=== PATIENT | female | born 1955 | race African-American/Black ===

== ENCOUNTER 2018-05-10 11:56 | Inpatient (IN) | payer OTHER ==
[2018-05-10 17:19] VITALS: BMI 27.4
--- NOTE | 2018-05-10 20:08 | HP ---
CIWA Score - CIWA Score Nausea/Vomitin Muscle Tremors: 4-Moderate,w/Arms Extend Anxiety: 4-Mod. Anxious/Guarded Agitation: 4-Moderately Restless Paroxysmal Sweats: 3 Orientation: 0-Oriented Tacttile Disturbances: 0-None Auditory Disturbances: 0-None Visual Disturbances: 0-None Headache: 2-Mild CIWA-Ar Total Score: 20 Admission ROS BHS - HPI Chief Complaint: Alcohol withdrawal symptoms Allergies/Adverse Reactions: Allergies Allergy/AdvReac Type Severity Reaction Status Date / Time No Known Allergies Allergy Verified 05/07/12 21:03 History of Present Illness: 62 years old female with a long history of alcohol dependence is seeking admission to detox. Patient was at [facility] in 2011 and does not remember the last place she detoxed. She reports insignificant period of sobriety. Patient has medical history of left leg arthritis, seizure and depression. She reports suicide attempt this month and denies suicidal ideation at this time. Exam Limitations: No Limitations - Ebola screening Have you traveled outside of the country in the last 21 days: No (N) Have you had contact with anyone from an Ebola affected area: No Have you been sick,other than usual withdrawal symptoms: No Do you have a fever: No - Review of Systems Constitutional: Chills, Loss of Appetite, Malaise, Night Sweats, Changes in sleep EENT: reports: Sinus Pressure Respiratory: reports: No Symptoms reported Cardiac: reports: No Symptoms Reported GI: reports: Diarrhea (x 2), Nausea, Poor Appetite, Poor Fluid Intake, Vomiting (x 3), Abdominal cramping : reports: No Symptoms Reported Musculoskeletal: reports: No Symptoms Reported Integumentary: reports: Dryness, Flushing, Pallor Neuro: reports: Tremors, Weakness Endocrine: reports: No Symptoms Reported Hematology: reports: No Symptoms Reported Psychiatric: reports: Anxious, Depressed Other Systems: Reviewed and Negative Patient History - Patient Medical History Hx Anemia: No Hx Asthma: No Hx Chronic Obstructive Pulmonary Disease (COPD): No Hx Cardiac Disorders: No Hx Congestive Heart Failure: No Hx Hypertension: No Hx Hypercholesterolemia: No HX Cerebrovascular Accident: No Hx Seizures: Yes (Not on medication) Hx Diabetes: No Hx Gastrointestinal Disorders: No Hx Liver Disease: No Hx Genitourinary Disorders: No Hx Sexually Transmitted Disorders: No Hx Renal Disease (ESRD): No Hx Thyroid Disease: No Hx Human Immunodeficiency Virus (HIV): No (Never tested) Hx Hepatitis C: No Hx Depression: Yes (Not on medication) Hx Suicide Attempt: No (Reports attempt in 2018 and denies suicidal ideation at this time) Hx Bipolar Disorder: No Hx Schizophrenia: No Other Medical History: Left leg arthritis - Not on medication - Patient Surgical History Past Surgical History: No - PPD History Previous Implant?: No (Reports she never had a prior implant) Implanted On Prior R Admission?: No PPD to be Administered?: Yes - Reproductive History Patient is a Female of Child Bearing Age (11 -55 yrs old): Yes LMP comment: MENOPAUSAL Patient : No - Smoking Cessation Smoking history: Current every day smoker Have you smoked in the past 12 months: Yes Aproximately how many cigarettes per day: 10 Hx Chewing Tobacco Use: No Initiated information on smoking cessation: Yes 'Breaking Loose' booklet given: 05/10/18 - Substance & Tx. History Hx Alcohol Use: Yes Hx Substance Use: No Substance Use Type: Alcohol Hx Substance Use Treatment: Yes (Patient does not remember name of facility) - Substances Abused Alcohol Route: Oral Frequency: Daily Amount used: 6 PINTS OF VODKA Age of first use: 18 Date of Last Use: 05/10/18 Family Disease History - Family Disease History Family History: Denies Admission Physical Exam S - Vital Signs Vital Signs: Vital Signs - 24 hr 05/10/18 17:13 Temperature 97.8 F Pulse Rate 120 H Respiratory 18 Rate Blood Pressure 138/77 - Physical General Appearance: Yes: Moderate Distress, Tremorous, Irritable, Sweating, Anxious HEENTM: Yes: EOMI, Normal ENT Inspection, Normocephalic, Normal Voice, KERRY Respiratory: Yes: Lungs Clear, Normal Breath Sounds, No Respiratory Distress Neck: Yes: No masses,lesions,Nodules, Supple, Trachea in good position Breast: Yes: Breast Exam Deferred Cardiology: Yes: Tachycardia Abdominal: Yes: Normal Bowel Sounds, Soft Genitourinary: Yes: Within Normal Limits Back: Yes: Normal Inspection Musculoskeletal: Yes: Within Normal Limits Extremities: Yes: Tremors Neurological: Yes: Alert, Normal Mood/Affect Integumentary: Yes: Warm Lymphatic: Yes: Within Normal Limits - Diagnostic (1) Alcohol dependence with uncomplicated withdrawal Current Visit: Yes Status: Chronic (2) Nicotine dependence Current Visit: Yes Status: Chronic Qualifiers: Nicotine product type: unspecified (3) Seizures Current Visit: Yes Status: Chronic (4) Depression Current Visit: Yes Status: Chronic Qualifiers: Depression Type: unspecified Qualified Code(s): F32.9 - Major depressive disorder, single episode, unspecified (5) Arthritis of left leg Current Visit: Yes Status: Chronic Cleared for Admission [facility] - Detox or Rehab [facility] Level of Care: Medically Managed Detox Regimen/Protocol: Librium S Breath Alcohol Content Breath Alcohol Content: 0.054 Urine Pregancy Test - Result Urine Test Results: Negative- NO Line Present Urine Drug Screen - Results Drug Screen Negative: Yes
[2018-05-10] MEDS ORDERED: MAGNESIUM HYDROX 2400MG/30ML ORAL SUSPENSION 30 ML CUP PO PRN (20:29)
[2018-05-10] MEDS ORDERED: guaiFENesin/D-METHORPHAN HB 10 ML UNIT-DOSE CUPS PO PRN (20:29)
[2018-05-10] MEDS ORDERED: IBUPROFEN 400 MG TABLET (FP) PO PRN (20:29)
[2018-05-10] MEDS ORDERED: chlordiazePOXIDE HCL 25 MG CAPSULE PO PRN (20:29)
[2018-05-10] MEDS ORDERED: P-EPHED 60MG/TRIPROLIDI 2.5MG TABLET PO PRN (20:29)
[2018-05-10] MEDS ORDERED: MAG HYDROX/AL HYDROX/SIMETH 30 ML UNIT-DOSE CUP PO PRN (20:29)
[2018-05-10] MEDS ORDERED: MAGNESIUM CITRATE 300 ML BOTTLE PO PRN (20:29)
[2018-05-10] MEDS ORDERED: ACETAMINOPHEN 325 MG TABLET (FP) PO PRN (20:29)
[2018-05-10] MEDS ORDERED: MENTHOL/PHENOL 1 EACH UD MM PRN (20:29)
[2018-05-10] MEDS ORDERED: NICOTINE POLACRILEX 4 MG GUM BC PRN (20:29)
[2018-05-10] MEDS ORDERED: LOPERAMIDE HCL 2 MG CAPSULE PO PRN (20:29)
[2018-05-10] MEDS ORDERED: MELATONIN 5 MG TABLETS PO PRN (22:00)
[2018-05-10] MEDS: THIAMINE HCL 100 MG TABLET (FP) PO SCH (23:27)
[2018-05-10] MEDS: chlordiazePOXIDE HCL 25 MG CAPSULE PO SCH (23:28)
[2018-05-11] MEDS: chlordiazePOXIDE HCL 25 MG CAPSULE PO SCH ×4 (05:39→22:28)
--- NOTE | 2018-05-11 07:31 | CONSULT ---
[facility] Psychiatric Consult - Data Date of interview: 05/11/18 Admission source: [facility] Identifying data: This is a 62 years old female, single, living alone, with a long history of alcohol dependence is reporting withdrawal symptoms and seeking admission to detox. Patient has cognitive deficit and poor historian, Patient was at [facility] in 2011 and does not remember the last place she detoxed. Reports recent suicidal incident but can not discribe detailes, denies suicidal, homicidal ideation at this time. Substance Abuse History: - Smoking Cessation. Smoking history: Current every day smoker. Have you smoked in the past 12 months: Yes. Aproximately how many cigarettes per day: 10. Hx Chewing Tobacco Use: No. Initiated information on smoking cessation: Yes. 'Breaking Loose' booklet given: 05/10/18. - Substance & Tx. History. Hx Alcohol Use: Yes. Hx Substance Use: No. Substance Use Type : Alcohol. Hx Substance Use Treatment: Yes (Patient does not remember name of facility). - Substances Abused. Alcohol. Route: Oral. Frequency: Daily. Amount used: 6 PINTS OF VODKA. Age of first use: 18. Date of Last Use: Medical History: Osteoarthritis, Seizure history, Left Leg injuryb hyistory Psychiatric History: Patient reports history of depression, denies history of psychiatric hospitalizations, reports no medications taking prior to admission, circumstantioa, and tangential in conversation with proposal lead writer. As per computer patient reports suicidal attempt this month and denies suicidal ideation at this time. Patient is poor historyan and cognitively below average. Exam Limitations: No Limitations Physical/Sexual Abuse/Trauma History: Unclear Additional Comment: Observation. Detox Unit Care Protocol Mental Status Exam - Mental Status Exam Alert and Oriented to: Person Cognitive Function: Impaired Patient Appearance: Unkempt Mood: Sad Affect: Flat Patient Behavior: Sedated Speech Pattern: Delayed Voice Loudness: Mildly Soft/Quiet Thought Process: Circumstantial, Tangential Thought Disorder: Being Controlled Hallucinations: Denies Suicidal Ideation: Denies Homicidal Ideation: Denies Insight/Judgement: Fair Sleep: Difficulty falling asleep Appetite: Weight loss Muscle strength/Tone: Clonus Gait/Station: Deferred Additional Comments: Observation. Detox Unit Care Protocol Psychiatric Findings - Problem List ([place] 1, 2,3) (1) Alcohol-induced mood disorder Current Visit: Yes Status: Acute (2) Alcohol dependence with uncomplicated withdrawal Current Visit: Yes Status: Chronic (3) Arthritis of left leg Current Visit: Yes Status: Chronic (4) Depression Current Visit: Yes Status: Chronic Qualifiers: Depression Type: unspecified Qualified Code(s): F32.9 - Major depressive disorder, single episode, unspecified (5) Nicotine dependence Current Visit: Yes Status: Chronic Qualifiers: Nicotine product type: unspecified (6) Seizures Current Visit: Yes Status: Chronic (7) Alcohol dependence Current Visit: No Status: Active (8) Osteoarthritis of multiple joints Current Visit: No Status: Active - Initial Treatment Plan Initial Treatment Plan: Observation. Detox Unit Care Protocol
--- NOTE | 2018-05-11 09:06 | PN ---
S CIWA - CIWA Score Nausea/Vomitin Muscle Tremors: 3 Anxiety: 2 Agitation: 2 Paroxysmal Sweats: 1-Minimal Palms Moist Orientation: 0-Oriented Tacttile Disturbances: 1-Very Mild Itch/Numbness Auditory Disturbances: 1-Very Mild Visual Disturbances: 0-None Headache: 2-Mild CIWA-Ar Total Score: 15 BHS Progress Note (SOAP) Subjective: alert,irritable,anxious,interrupted sleep,tremor Objective: 05/11/18 09:03 Vital Signs Temperature 99.9 F H 05/11/18 06:33 Pulse Rate 105 H 05/11/18 06:33 Respiratory Rate 20 05/11/18 06:33 Blood Pressure 148/70 05/11/18 06:33 O2 Sat by Pulse Oximetry (%) ekg sinus tachycardia 110/min qt/qtc 356/466 no chest pain,no sob,no dizziness labs pending Assessment: 05/11/18 09:05 withdrawal symptom Plan: continue detox
[2018-05-11 10:25] LABS: HEMATOCRIT 36.4 % (32.4-45.2); HEMOGLOBIN 12.3 GM/dL (10.7-15.3); MCH 35.6 pg (25.7-33.7); MCHC 33.7 g/dl (32.0-36.0); MEAN CELL VOLUME 105.8 fl (80-96); MEAN PLT VOLUME 10.8 fl (7.5-11.1); PLATELET COUNT 103 K/MM3 (134-434); RBC 3.44 M/mm3 (3.60-5.2); RDW 17.5 % (11.6-15.6); WHITE BLOOD COUNT 6.4 K/mm3 (4.0-10.0)
[2018-05-11] MEDS: NICOTINE 14 MG/24 HOURS TOPICAL PATCH TD SCH (10:30)
[2018-05-11] MEDS: PRENATAL VITAMINS W/ FOLIC ACID TABLET (FP) PO SCH (10:30)
[2018-05-11 10:34] LABS: CHLORIDE 98 mmol/L (98-107); POTASSIUM 3.4 mmol/L (3.5-5.1); SODIUM 141 mmol/L (136-145)
[2018-05-11 10:45] LABS: ALBUMIN 2.8 g/dl (3.4-5.0); ALK PHOS 79 U/L (45-117); ANION GAP 11 MMOL/L (8-16); BILIRUBIN,TOTAL 1.4 mg/dL (0.2-1.0); BLOOD UREA NITROGEN 8 mg/dL (7-18); CALCIUM 7.4 mg/dL (8.5-10.1); CO2 32 mmol/L (21-32); CREATININE 0.4 mg/dL (0.55-1.02); GLUCOSE,RANDOM 69 mg/dL (74-106); SGOT/AST 43 U/L (15-37); SGPT/ALT 21 U/L (12-78); TOT PROT 5.4 g/dl (6.4-8.2)
--- NOTE | 2018-05-11 16:01 | EKG ---
Test Reason : Blood Pressure : / mmHG Vent. Rate : 103 BPM Atrial Rate : 103 BPM P-R Int : 148 ms QRS Dur : 074 ms QT Int : 346 ms P-R-T Axes : 063 020 -73 degrees QTc Int : 453 ms SINUS TACHYCARDIA NONSPECIFIC ST AND T WAVE ABNORMALITY ABNORMAL ECG WHEN COMPARED WITH ECG OF 10-MAY-2018 23:34, NO SIGNIFICANT CHANGE WAS FOUND Confirmed by Christen Joy ([id number]) on 05/11/2018 4:00:44 PM Referred By: Confirmed By:Christen Joy
--- NOTE | 2018-05-11 17:09 | PN ---
[facility] Progress Note Note: Vital Signs Temperature 98.6 F 05/11/18 14:58 Pulse Rate 97 H 05/11/18 14:58 Respiratory Rate 19 05/11/18 14:58 Blood Pressure 105/53 05/11/18 14:58 O2 Sat by Pulse Oximetry (%) Laboratory Last Values WBC 6.4 K/mm3 (4.0-10.0) 05/11/18 09:00 RBC 3.44 M/mm3 (3.60-5.2) L 05/11/18 09:00 Hgb 12.3 GM/dL (10.7-15.3) 05/11/18 09:00 Hct 36.4 % (32.4-45.2) 05/11/18 09:00 MCV 105.8 fl (80-96) H 05/11/18 09:00 MCH 35.6 pg (25.7-33.7) H 05/11/18 09:00 MCHC 33.7 g/dl (32.0-36.0) 05/11/18 09:00 RDW 17.5 % (11.6-15.6) H 05/11/18 09:00 Plt Count 103 K/MM3 (134-434) L D 05/11/18 09:00 MPV 10.8 fl (7.5-11.1) 05/11/18 09:00 Sodium 141 mmol/L (136-145) 05/11/18 07:40 Potassium 3.4 mmol/L (3.5-5.1) L 05/11/18 07:40 Chloride 98 mmol/L (98-107) 05/11/18 07:40 Carbon Dioxide 32 mmol/L (21-32) 05/11/18 07:40 Anion Gap 11 MMOL/L (8-16) 05/11/18 07:40 BUN 8 mg/dL (7-18) 05/11/18 07:40 Creatinine 0.4 mg/dL (0.55-1.02) L 05/11/18 07:40 Creat Clearance w eGFR > 60 (>60) 05/11/18 07:40 Random Glucose 69 mg/dL (74-106) L 05/11/18 07:40 Calcium 7.4 mg/dL (8.5-10.1) L 05/11/18 07:40 Total Bilirubin 1.4 mg/dL (0.2-1.0) H 05/11/18 07:40 AST 43 U/L (15-37) H 05/11/18 07:40 ALT 21 U/L (12-78) 05/11/18 07:40 Alkaline Phosphatase 79 U/L (45-117) 05/11/18 07:40 Total Protein 5.4 g/dl (6.4-8.2) L 05/11/18 07:40 Albumin 2.8 g/dl (3.4-5.0) L 05/11/18 07:40 RPR Titer Nonreactive (NONREACTIVE) 05/11/18 07:40 HIV 1&2 Antibody Screen Negative 05/11/18 08:20 HIV P24 Antigen Negative 05/11/18 08:20 mild hypokalemia repeat potassium in AM continue to monitor
[2018-05-11] MEDS: THIAMINE HCL 100 MG TABLET (FP) PO SCH (22:29)
[2018-05-12] MEDS: chlordiazePOXIDE HCL 25 MG CAPSULE PO SCH ×3 (06:28→18:14)
--- NOTE | 2018-05-12 10:05 | PN ---
S CIWA - CIWA Score Nausea/Vomitin Muscle Tremors: 3 Anxiety: 1-Mildly Anxious Agitation: 2 Paroxysmal Sweats: 1-Minimal Palms Moist Orientation: 0-Oriented Tacttile Disturbances: 1-Very Mild Itch/Numbness Auditory Disturbances: 1-Very Mild Visual Disturbances: 0-None Headache: 2-Mild CIWA-Ar Total Score: 14 S Progress Note (SOAP) Subjective: alert,irritable,anxious,interrupted sleep, Objective: 05/12/18 10:04 Vital Signs Temperature 98.4 F 05/12/18 09:50 Pulse Rate 112 H 05/12/18 09:50 Respiratory Rate 18 05/12/18 09:50 Blood Pressure 141/68 05/12/18 09:50 O2 Sat by Pulse Oximetry (%) 05/12/18 10:04 Laboratory Last Values WBC 6.4 K/mm3 (4.0-10.0) 05/11/18 09:00 RBC 3.44 M/mm3 (3.60-5.2) L 05/11/18 09:00 Hgb 12.3 GM/dL (10.7-15.3) 05/11/18 09:00 Hct 36.4 % (32.4-45.2) 05/11/18 09:00 MCV 105.8 fl (80-96) H 05/11/18 09:00 MCH 35.6 pg (25.7-33.7) H 05/11/18 09:00 MCHC 33.7 g/dl (32.0-36.0) 05/11/18 09:00 RDW 17.5 % (11.6-15.6) H 05/11/18 09:00 Plt Count 103 K/MM3 (134-434) L D 05/11/18 09:00 MPV 10.8 fl (7.5-11.1) 05/11/18 09:00 Sodium 141 mmol/L (136-145) 05/11/18 07:40 Potassium 3.4 mmol/L (3.5-5.1) L 05/11/18 07:40 Chloride 98 mmol/L (98-107) 05/11/18 07:40 Carbon Dioxide 32 mmol/L (21-32) 05/11/18 07:40 Anion Gap 11 MMOL/L (8-16) 05/11/18 07:40 BUN 8 mg/dL (7-18) 05/11/18 07:40 Creatinine 0.4 mg/dL (0.55-1.02) L 05/11/18 07:40 Creat Clearance w eGFR > 60 (>60) 05/11/18 07:40 Random Glucose 69 mg/dL (74-106) L 05/11/18 07:40 Calcium 7.4 mg/dL (8.5-10.1) L 05/11/18 07:40 Total Bilirubin 1.4 mg/dL (0.2-1.0) H 05/11/18 07:40 AST 43 U/L (15-37) H 05/11/18 07:40 ALT 21 U/L (12-78) 05/11/18 07:40 Alkaline Phosphatase 79 U/L (45-117) 05/11/18 07:40 Total Protein 5.4 g/dl (6.4-8.2) L 05/11/18 07:40 Albumin 2.8 g/dl (3.4-5.0) L 05/11/18 07:40 RPR Titer Nonreactive (NONREACTIVE) 05/11/18 07:40 HIV 1&2 Antibody Screen Negative 05/11/18 08:20 HIV P24 Antigen Negative 05/11/18 08:20 05/12/18 10:04 repeat k pending Assessment: 05/12/18 10:05 withdrawal symptom Plan: continue detox
[2018-05-12] MEDS: PRENATAL VITAMINS W/ FOLIC ACID TABLET (FP) PO SCH (11:06)
[2018-05-12] MEDS: NICOTINE 14 MG/24 HOURS TOPICAL PATCH TD SCH (11:06)
[2018-05-12] MEDS: POTASSIUM CHLORIDE TABS 20 MEQ TABLET.ER (FP) PO SCH (15:48)
[2018-05-12] MEDS: THIAMINE HCL 100 MG TABLET (FP) PO SCH (21:56)
[2018-05-12] MEDS: chlordiazePOXIDE 5 MG CAPSULE PO SCH (22:55)
[2018-05-13] MEDS: chlordiazePOXIDE 5 MG CAPSULE PO SCH ×3 (05:41→18:25)
--- NOTE | 2018-05-13 10:51 | PN ---
B[facility] Progress Note (SOAP) Subjective: Mild shakes, sleep interruption and muscle aches Objective: 05/13/18 10:49 Vital Signs - 8 hr 05/13/18 05/13/18 05/13/18 03:30 06:00 06:30 Temperature 97.9 F Pulse Rate 89 Respiratory 18 18 18 Rate Blood Pressure 115/68 05/13/18 09:14 Temperature 98.2 F Pulse Rate 86 Respiratory 18 Rate Blood Pressure 115/66 Laboratory Last Values WBC 6.4 K/mm3 (4.0-10.0) 05/11/18 09:00 RBC 3.44 M/mm3 (3.60-5.2) L 05/11/18 09:00 Hgb 12.3 GM/dL (10.7-15.3) 05/11/18 09:00 Hct 36.4 % (32.4-45.2) 05/11/18 09:00 MCV 105.8 fl (80-96) H 05/11/18 09:00 MCH 35.6 pg (25.7-33.7) H 05/11/18 09:00 MCHC 33.7 g/dl (32.0-36.0) 05/11/18 09:00 RDW 17.5 % (11.6-15.6) H 05/11/18 09:00 Plt Count 103 K/MM3 (134-434) L D 05/11/18 09:00 MPV 10.8 fl (7.5-11.1) 05/11/18 09:00 Sodium 141 mmol/L (136-145) 05/11/18 07:40 Potassium 3.4 mmol/L (3.5-5.1) L 05/12/18 07:00 Chloride 98 mmol/L (98-107) 05/11/18 07:40 Carbon Dioxide 32 mmol/L (21-32) 05/11/18 07:40 Anion Gap 11 MMOL/L (8-16) 05/11/18 07:40 BUN 8 mg/dL (7-18) 05/11/18 07:40 Creatinine 0.4 mg/dL (0.55-1.02) L 05/11/18 07:40 Creat Clearance w eGFR > 60 (>60) 05/11/18 07:40 Random Glucose 69 mg/dL (74-106) L 05/11/18 07:40 Calcium 7.4 mg/dL (8.5-10.1) L 05/11/18 07:40 Total Bilirubin 1.4 mg/dL (0.2-1.0) H 05/11/18 07:40 AST 43 U/L (15-37) H 05/11/18 07:40 ALT 21 U/L (12-78) 05/11/18 07:40 Alkaline Phosphatase 79 U/L (45-117) 05/11/18 07:40 Total Protein 5.4 g/dl (6.4-8.2) L 05/11/18 07:40 Albumin 2.8 g/dl (3.4-5.0) L 05/11/18 07:40 RPR Titer Nonreactive (NONREACTIVE) 05/11/18 07:40 HIV 1&2 Antibody Screen Negative 05/11/18 08:20 HIV P24 Antigen Negative 05/11/18 08:20 Labs noted-hypokalemia Assessment: 05/13/18 10:50 Withdrawal sx Hypokalemia Plan: Continue detox Started on potassium supplement on 05/12, continue same
[2018-05-13] MEDS: PRENATAL VITAMINS W/ FOLIC ACID TABLET (FP) PO SCH (11:29)
[2018-05-13] MEDS: NICOTINE 14 MG/24 HOURS TOPICAL PATCH TD SCH (11:29)
[2018-05-13] MEDS: POTASSIUM CHLORIDE TABS 20 MEQ TABLET.ER (FP) PO SCH (11:29)
[2018-05-13] MEDS: chlordiazePOXIDE HCL 10 MG CAPSULE PO SCH (23:35)
[2018-05-13] MEDS: THIAMINE HCL 100 MG TABLET (FP) PO SCH (23:35)
[2018-05-14 06:02] VITALS: TEMP 98.1
[2018-05-14] MEDS: chlordiazePOXIDE HCL 10 MG CAPSULE PO SCH ×2 (06:11→10:35)
[2018-05-14] MEDS: POTASSIUM CHLORIDE TABS 20 MEQ TABLET.ER (FP) PO SCH (09:49)
[2018-05-14] MEDS: PRENATAL VITAMINS W/ FOLIC ACID TABLET (FP) PO SCH (09:49)
[2018-05-14] MEDS: NICOTINE 14 MG/24 HOURS TOPICAL PATCH TD SCH (09:51)
[2018-05-14 11:10] VITALS: BP 91/58; PULSE 105
--- NOTE | 2018-05-14 11:54 | PN ---
[facility] Progress Note Note: Alert and oriented x 3. Respirations quiet and unlabored. Denies withdrawal symptoms. Has own wheelchair and is able to transfer in and out of chair w/o assistance. States being discharged and "will follow-up with what's necessary." Verbalizes an understanding of health risks associated w/ alcohol use and relapse prevention. Laboratory Last Values WBC 6.4 K/mm3 (4.0-10.0) 05/11/18 09:00 RBC 3.44 M/mm3 (3.60-5.2) L 05/11/18 09:00 Hgb 12.3 GM/dL (10.7-15.3) 05/11/18 09:00 Hct 36.4 % (32.4-45.2) 05/11/18 09:00 MCV 105.8 fl (80-96) H 05/11/18 09:00 MCH 35.6 pg (25.7-33.7) H 05/11/18 09:00 MCHC 33.7 g/dl (32.0-36.0) 05/11/18 09:00 RDW 17.5 % (11.6-15.6) H 05/11/18 09:00 Plt Count 103 K/MM3 (134-434) L D 05/11/18 09:00 MPV 10.8 fl (7.5-11.1) 05/11/18 09:00 Sodium 141 mmol/L (136-145) 05/11/18 07:40 Potassium 3.4 mmol/L (3.5-5.1) L 05/12/18 07:00 Chloride 98 mmol/L (98-107) 05/11/18 07:40 Carbon Dioxide 32 mmol/L (21-32) 05/11/18 07:40 Anion Gap 11 MMOL/L (8-16) 05/11/18 07:40 BUN 8 mg/dL (7-18) 05/11/18 07:40 Creatinine 0.4 mg/dL (0.55-1.02) L 05/11/18 07:40 Creat Clearance w eGFR > 60 (>60) 05/11/18 07:40 Random Glucose 69 mg/dL (74-106) L 05/11/18 07:40 Calcium 7.4 mg/dL (8.5-10.1) L 05/11/18 07:40 Total Bilirubin 1.4 mg/dL (0.2-1.0) H 05/11/18 07:40 AST 43 U/L (15-37) H 05/11/18 07:40 ALT 21 U/L (12-78) 05/11/18 07:40 Alkaline Phosphatase 79 U/L (45-117) 05/11/18 07:40 Total Protein 5.4 g/dl (6.4-8.2) L 05/11/18 07:40 Albumin 2.8 g/dl (3.4-5.0) L 05/11/18 07:40 RPR Titer Nonreactive (NONREACTIVE) 05/11/18 07:40 HIV 1&2 Antibody Screen Negative 05/11/18 08:20 HIV P24 Antigen Negative 05/11/18 08:20 Vital Signs - 24 hr 05/13/18 05/13/18 05/13/18 14:40 17:33 22:12 Temperature 98.1 F 98.1 F 97.7 F Pulse Rate 98 H 90 99 H Respiratory 18 18 18 Rate Blood Pressure 97/53 103/67 128/74 05/14/18 05/14/18 05/14/18 00:30 01:55 03:30 Temperature 98.8 F Pulse Rate 79 Respiratory 18 18 15 Rate Blood Pressure 116/69 05/14/18 05/14/18 06:00 10:00 Temperature 98.1 F 98.1 F Pulse Rate 94 H 105 H Respiratory 18 16 Rate Blood Pressure 128/88 91/58 Stable. Tolerated detox. Discharged to home, as arranged.
--- NOTE | 2018-05-14 13:09 | DS ---
[facility] Detox Discharge Summary Admission Date: 05/10/18 Discharge Date: 05/14/18 - History Present History: Alcohol Dependence Pertinent Past History: Alcohol use disorder. Hx osteoarthritis requiring wheelchair use. - Physical Exam Results Vital Signs: Vital Signs Temperature 98.1 F 05/14/18 10:00 Pulse Rate 105 H 05/14/18 10:00 Respiratory Rate 16 05/14/18 10:00 Blood Pressure 91/58 05/14/18 10:00 O2 Sat by Pulse Oximetry (%) Pertinent Admission Physical Exam Findings: Alcohol withdrawal. Laboratory Tests 05/11/18 05/11/18 05/11/18 07:40 07:40 08:20 WBC RBC Hgb Hct MCV MCH MCHC RDW Plt Count MPV Sodium 141 Potassium 3.4 L Chloride 98 Carbon Dioxide 32 Anion Gap 11 BUN 8 Creatinine 0.4 L Creat Clearance w eGFR > 60 Random Glucose 69 L Calcium 7.4 L Total Bilirubin 1.4 H AST 43 H ALT 21 Alkaline Phosphatase 79 Total Protein 5.4 L Albumin 2.8 L RPR Titer Nonreactive HIV 1&2 Antibody Screen Negative HIV P24 Antigen Negative 05/11/18 05/12/18 09:00 07:00 WBC 6.4 RBC 3.44 L Hgb 12.3 Hct 36.4 MCV 105.8 H MCH 35.6 H MCHC 33.7 RDW 17.5 H Plt Count 103 L D MPV 10.8 Sodium Potassium 3.4 L Chloride Carbon Dioxide Anion Gap BUN Creatinine Creat Clearance w eGFR Random Glucose Calcium Total Bilirubin AST ALT Alkaline Phosphatase Total Protein Albumin RPR Titer HIV 1&2 Antibody Screen HIV P24 Antigen Labs reviewed. - Treatment Hospital Course: Detox Protocol Followed, Detoxed Safely, Responded well, Discharged Condition Good - Medication Discharge Medications: Ambulatory Orders NK [No Known Home Medication] 05/10/18 - Diagnosis (1) Osteoarthritis of multiple joints Status: Active (2) Wheel chair as ambulatory aid Status: Acute (3) Alcohol dependence with uncomplicated withdrawal Status: Chronic (4) Nicotine dependence Status: Chronic Qualifiers: Nicotine product type: cigarettes Substance use status: uncomplicated Qualified Code(s): F17.210 - Nicotine dependence, cigarettes, uncomplicated - AMA Did Patient Leave Against Medical Advice: No
--- NOTE | 2018-05-17 13:57 | EKG ---
Test Reason : Blood Pressure : / mmHG Vent. Rate : 103 BPM Atrial Rate : 103 BPM P-R Int : 152 ms QRS Dur : 080 ms QT Int : 356 ms P-R-T Axes : 064 040 -15 degrees QTc Int : 466 ms SINUS TACHYCARDIA NONSPECIFIC T WAVE ABNORMALITY ABNORMAL ECG NO PREVIOUS ECGS AVAILABLE Confirmed by Christen Joy ([id number]) on 05/11/2018 4:01:48 PM Also confirmed by Christen Joy ([id number]), international editorial producer Jayleen Stark ([id number]) on 05/17/2018 1:56:37 PM Referred By: Confirmed By:Christen Joy
== END 2018-05-14 11:50 | disposition home or self-care (01) | DRG 775 ==
LOC: YASAS 11:56 → Y6N 19:09
PROVIDERS: ADMIT Surgery; ATTEND Surgery
PROC: HZ2ZZZZ Detoxification Services for Substance Abuse Treatment (ICD-10-PCS; principal; 2018-05-10)
DX: F10.230 Alcohol dependence with withdrawal, uncomplicated (principal); F17.210 Nicotine dependence, cigarettes, uncomplicated; F32.9 Major depressive disorder, single episode, unspecified; E87.6 Hypokalemia; M15.9 Polyosteoarthritis, unspecified; G40.909 Epilepsy, unspecified, not intractable, without status epilepticus; R26.89 Other abnormalities of gait and mobility; Z99.3 Dependence on wheelchair; Z91.5 Personal history of self-harm; Z59.0 Homelessness
CPT/HCPCS: 36415; 80053; 84132; 85027; 86593; 87389; 93005; 93010

== ENCOUNTER 2019-06-06 13:58 | Inpatient (IN) | payer OTHER ==
--- NOTE | 2019-06-06 17:46 | HP ---
CIWA Score Nausea/Vomitin Muscle Tremors: 4-Moderate,w/Arms Extend Anxiety: 2 Agitation: 2 Paroxysmal Sweats: No Perspiration Orientation: 0-Oriented Tacttile Disturbances: 0-None Auditory Disturbances: 0-None Visual Disturbances: 0-None Headache: 2-Mild CIWA-Ar Total Score: 13 - Admission Criteria [facility] Guidelines: Admission for Medically Managed Detox: Requires at least one of the followin. CIWA greater than 12 2. Seizures within the past 24 hours 3. Delirium tremens within the past 24 hours 4. Hallucinations within the past 24 hours 5. Acute intervention needed for co occurring medical disorder 6. Acute intervention needed for co occurring psychiatric disorder 7. Severe withdrawal that cannot be handled at a lower level of care (continued vomiting, continued diarrhea, abnormal vital signs) requiring intravenous medication and/or fluids 8. Admission ROS [facility] Chief Complaint: alcohol detox Allergies/Adverse Reactions: Allergies Allergy/AdvReac Type Severity Reaction Status Date / Time No Known Allergies Allergy Verified 06/06/19 15:50 History of Present Illness: Patient is a 63 yo F with a PMHx of osteoarthritis, alcohol use disorder presenting here for alcohol detox. Drinks 1 12 pack a day. Last drink today. Was previously here in august for detox. Lives in a [facility]. Says she blacked out a couple of days ago. denies seizures. Daily smoker. 6 cigarettes a day. - Ebola screening Have you traveled outside of the country in the last 21 days: No Have you had contact with anyone from an Ebola affected area: No Do you have a fever: No Patient History - Patient Medical History Hx Anemia: No Hx Asthma: No Hx Chronic Obstructive Pulmonary Disease (COPD): No Hx Cardiac Disorders: No Hx Congestive Heart Failure: No Hx Hypertension: No Hx Hypercholesterolemia: No HX Cerebrovascular Accident: No Hx Seizures: Yes (Not on medication) Hx Diabetes: No Hx Gastrointestinal Disorders: No Hx Liver Disease: No Hx Genitourinary Disorders: No Hx Sexually Transmitted Disorders: No Hx Renal Disease (ESRD): No Hx Thyroid Disease: No Hx Human Immunodeficiency Virus (HIV): No (Never tested) Hx Hepatitis C: No Hx Depression: Yes (Not on medication) Hx Suicide Attempt: No (Reports attempt in 2018 and denies suicidal ideation at this time) Hx Bipolar Disorder: No Hx Schizophrenia: No - Patient Surgical History Past Surgical History: No Other Surgical History: HYSTERECTOMY AT THE AGE OF 20. - PPD History Date: 05/12/18 - Smoking Cessation Smoking history: Current every day smoker Have you smoked in the past 12 months: Yes Aproximately how many cigarettes per day: 10 Hx Chewing Tobacco Use: No Initiated information on smoking cessation: Yes 'Breaking Loose' booklet given: 06/06/19 - Substances abused Alcohol Substance route: Oral Frequency: Daily Amount used: 12 beer Age of first use: 36 Date of last use: 06/05/19 Family Disease History - Family Disease History Family History: Unable to Obtain Admission Physical Exam BHS - Vital Signs Vital Signs: Vital Signs - 24 hr 06/06/19 15:43 Temperature 97.7 F Pulse Rate 89 Respiratory 16 Rate Blood Pressure 153/88 - Physical General Appearance: Yes: No Apparent Distress Respiratory: Yes: No Respiratory Distress, No Accessory Muscle Use Cardiology: Yes: Regular Rhythm, Regular Rate, S1, S2 Abdominal: Yes: Non Tender, Soft Extremities: No: Swelling - Diagnostic (1) Alcohol abuse Current Visit: No Status: Active (2) Alcohol dependence Current Visit: No Status: Active (3) Osteoarthritis of multiple joints Current Visit: No Status: Active (4) Wheel chair as ambulatory aid Current Visit: No Status: Acute Breathalyzer - Breathalyzer Breathalyzer: 0.024 Urine Drug Screen - Test Device Lot number: [id number] Expiration date: 02/16/21 - Control Is test valid?: Yes - Results Drug screen NEGATIVE: No Urine drug screen results: BZO-Benzodiazepines Inpatient Rehab Admission - Rehab Decision to Admit Inpatient rehab admission?: No
--- NOTE | 2019-06-06 18:04 | PN ---
Teaching Attending Note Name of Resident: Karlene Ibarra ATTENDING PHYSICIAN STATEMENT I saw and evaluated the patient. I reviewed the resident's note and discussed the case with the resident. I agree with the resident's findings and plan as documented. SUBJECTIVE: 63 yo with h/o arthritis, drinks a 6 pack of beer/day. Lives in a fpc/homeless. OBJECTIVE: Vital Signs - 24 hr 06/06/19 06/06/19 15:43 20:59 Temperature 97.7 F 97.5 F L Pulse Rate 89 88 Respiratory 16 16 Rate Blood Pressure 153/88 116/71 tremulous ASSESSMENT AND PLAN: Admit for detox for AUD- detox per protocol
[2019-06-06] MEDS ORDERED: MENTHOL/PHENOL 1 EACH UD MM PRN (18:12)
[2019-06-06] MEDS ORDERED: IBUPROFEN 400 MG TABLET (FP) PO PRN (18:12)
[2019-06-06] MEDS ORDERED: ACETAMINOPHEN 325 MG TABLET (FP) PO PRN ×2 (18:12)
[2019-06-06] MEDS ORDERED: MAGNESIUM HYDROX 2400MG/30ML ORAL SUSPENSION 30 ML CUP PO PRN (18:12)
[2019-06-06] MEDS ORDERED: MAGNESIUM CITRATE 300 ML BOTTLE PO PRN (18:12)
[2019-06-06] MEDS ORDERED: METHOCARBAMOL 500 MG TABLET PO PRN (18:12)
[2019-06-06] MEDS ORDERED: MAG HYDROX/AL HYDROX/SIMETH 30 ML UNIT-DOSE CUP PO PRN (18:12)
[2019-06-06] MEDS ORDERED: BISMUTH SUBSALICYLATE 524 MG/30 ML UD PO PRN (18:12)
[2019-06-06] MEDS ORDERED: MELATONIN 5 MG TABLETS PO PRN (18:12)
[2019-06-06] MEDS ORDERED: cloNIDine HCL 0.1 MG TABLET PO PRN (18:12)
[2019-06-06] MEDS ORDERED: METHADONE HCL 10 MG TABLET (FOR DETOX USE ONLY) PO ONE (18:12)
[2019-06-06] MEDS ORDERED: hydrOXYzine PAMOATE 25 MG CAPSULE (FP) PO PRN (18:12)
[2019-06-06] MEDS ORDERED: chlordiazePOXIDE 5 MG CAPSULE PO PRN (18:50)
[2019-06-06] MEDS: NICOTINE 14 MG/24 HOURS TOPICAL PATCH TD SCH (19:42)
[2019-06-06] MEDS: THIAMINE HCL 100 MG TABLET (FP) PO SCH (22:32)
[2019-06-06] MEDS: chlordiazePOXIDE 5 MG CAPSULE PO SCH (22:32)
[2019-06-07] MEDS: chlordiazePOXIDE 5 MG CAPSULE PO SCH ×4 (06:30→22:26)
[2019-06-07] MEDS ORDERED: METHADONE HCL 5 MG TABLET (FOR DETOX USE ONLY) PO ONE (10:00)
--- NOTE | 2019-06-07 10:09 | PN ---
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 chronic arthritis of the knees (the left knee in particular) female with long history of alcohol drinking reported that wheeling herself to buying alcohol from store able to pivot self from bed to wheelchair to toilet involuntary tremor both upper arms able to feed self and drink fluid from cup Objective: 06/07/19 10:09 Vital Signs Temperature 98.8 F 06/07/19 09:23 Pulse Rate 104 H 06/07/19 09:23 Respiratory Rate 18 06/07/19 09:23 Blood Pressure 140/88 06/07/19 09:23 O2 Sat by Pulse Oximetry (%) 06/07/19 10:09 lab pending 06/07/19 10:11 bp fluctuation with rapid ap clonidine 0.1 mg po q6h prn for bp elevation Assessment: 06/07/19 10:12 alcohol withdrawal sx Plan: continue librium detox regimen
[2019-06-07] MEDS ORDERED: cloNIDine HCL 0.1 MG TABLET PO PRN (10:11)
[2019-06-07] MEDS: PRENATAL VITAMINS W/ FOLIC ACID TABLET (FP) PO SCH (11:30)
[2019-06-07] MEDS: NICOTINE 14 MG/24 HOURS TOPICAL PATCH TD SCH (11:30)
[2019-06-07 11:37] LABS: ALBUMIN 3.6 g/dl (3.4-5.0); BLOOD UREA NITROGEN 10.5 mg/dL (7-18); CALCIUM 8.9 mg/dL (8.5-10.1); CREATININE 0.6 mg/dL (0.55-1.3); POTASSIUM 4.1 mmol/L (3.5-5.1); TOT PROT 6.6 g/dl (6.4-8.2)
[2019-06-07 11:39] LABS: HEMATOCRIT 37.4 % (32.4-45.2); HEMOGLOBIN 12.5 GM/dL (10.7-15.3); MCH 34.8 pg (25.7-33.7); MCHC 33.4 g/dl (32.0-36.0); MEAN CELL VOLUME 104.1 fl (80-96); MEAN PLT VOLUME 9.3 fl (7.5-11.1); PLATELET COUNT 149 K/MM3 (134-434); RBC 3.59 M/mm3 (3.60-5.2); RDW 17.2 % (11.6-15.6); WHITE BLOOD COUNT 5.9 K/mm3 (4.0-10.0)
[2019-06-07] MEDS ORDERED: PNEUMOC 13-VAL CONJ-DIP CRM/PF 0.5 ML DISP.SYRIN IM ONE (12:00)
[2019-06-07] MEDS: THIAMINE HCL 100 MG TABLET (FP) PO SCH (22:26)
[2019-06-08] MEDS: chlordiazePOXIDE HCL 10 MG CAPSULE PO SCH ×5 (07:04→22:24)
[2019-06-08] MEDS ORDERED: METHADONE HCL 10 MG TABLET (FOR DETOX USE ONLY) PO ONE (10:00)
[2019-06-08] MEDS: PRENATAL VITAMINS W/ FOLIC ACID TABLET (FP) PO SCH (10:31)
[2019-06-08] MEDS: NICOTINE 14 MG/24 HOURS TOPICAL PATCH TD SCH (10:32)
--- NOTE | 2019-06-08 13:40 | PN ---
S CIWA - CIWA Score Nausea/Vomitin-Mild Nausea/No Vomiting Muscle Tremors: 1-None Visible, but [place] Anxiety: 2 Agitation: 2 Paroxysmal Sweats: No Perspiration Orientation: 0-Oriented Tacttile Disturbances: 1-Very Mild Itch/Numbness Auditory Disturbances: 0-None Visual Disturbances: 0-None Headache: 1-Very Mild CIWA-Ar Total Score: 8 BHS Progress Note (SOAP) Subjective: alert,irritable,anxious,interrupted sleep,pain in the knees,body Objective: 06/08/19 13:39 Vital Signs Temperature 98.3 F 06/08/19 09:24 Pulse Rate 104 H 06/08/19 09:24 Respiratory Rate 18 06/08/19 09:24 Blood Pressure 107/69 06/08/19 09:24 O2 Sat by Pulse Oximetry (%) Laboratory Last Values WBC 5.9 K/mm3 (4.0-10.0) 06/07/19 07:50 RBC 3.59 M/mm3 (3.60-5.2) L 06/07/19 07:50 Hgb 12.5 GM/dL (10.7-15.3) 06/07/19 07:50 Hct 37.4 % (32.4-45.2) 06/07/19 07:50 MCV 104.1 fl (80-96) H 06/07/19 07:50 MCH 34.8 pg (25.7-33.7) H 06/07/19 07:50 MCHC 33.4 g/dl (32.0-36.0) 06/07/19 07:50 RDW 17.2 % (11.6-15.6) H 06/07/19 07:50 Plt Count 149 K/MM3 (134-434) D 06/07/19 07:50 MPV 9.3 fl (7.5-11.1) D 06/07/19 07:50 Sodium 138 mmol/L (136-145) 06/07/19 07:50 Potassium 4.1 mmol/L (3.5-5.1) 06/07/19 07:50 Chloride 100 mmol/L (98-107) 06/07/19 07:50 Carbon Dioxide 30 mmol/L (21-32) 06/07/19 07:50 Anion Gap 8 MMOL/L (8-16) 06/07/19 07:50 BUN 10.5 mg/dL (7-18) 06/07/19 07:50 Creatinine 0.6 mg/dL (0.55-1.3) 06/07/19 07:50 Est GFR (CKD-EPI)AfAm 110.86 06/07/19 07:50 Est GFR (CKD-EPI)NonAf 95.65 06/07/19 07:50 Random Glucose 88 mg/dL (74-106) 06/07/19 07:50 Calcium 8.9 mg/dL (8.5-10.1) 06/07/19 07:50 Total Bilirubin 1.0 mg/dL (0.2-1) 06/07/19 07:50 AST 21 U/L (15-37) 06/07/19 07:50 ALT 16 U/L (13-61) 06/07/19 07:50 Alkaline Phosphatase 59 U/L (45-117) 06/07/19 07:50 Total Protein 6.6 g/dl (6.4-8.2) 06/07/19 07:50 Albumin 3.6 g/dl (3.4-5.0) 06/07/19 07:50 RPR Titer Nonreactive (NONREACTIVE) 06/07/19 07:50 Assessment: 06/08/19 13:40 withdrawal symptom Plan: continue detox librium regimen
[2019-06-08] MEDS: THIAMINE HCL 100 MG TABLET (FP) PO SCH (22:24)
[2019-06-09] MEDS: chlordiazePOXIDE HCL 10 MG CAPSULE PO SCH ×4 (05:37→22:53)
[2019-06-09] MEDS ORDERED: METHADONE HCL 5 MG TABLET (FOR DETOX USE ONLY) PO ONE (06:00)
[2019-06-09] MEDS: PRENATAL VITAMINS W/ FOLIC ACID TABLET (FP) PO SCH (11:44)
[2019-06-09] MEDS: NICOTINE 14 MG/24 HOURS TOPICAL PATCH TD SCH (11:44)
--- NOTE | 2019-06-09 15:10 | PN ---
S CIWA - CIWA Score Nausea/Vomitin-No Nausea/No Vomiting Muscle Tremors: None Anxiety: 1-Mildly Anxious Agitation: 0-Normal Activity Paroxysmal Sweats: No Perspiration Orientation: 0-Oriented Tacttile Disturbances: 2-Mild Itch/Numbness/Burn Auditory Disturbances: 0-None Visual Disturbances: 2-Mild Sensitivity Headache: 0-None Present CIWA-Ar Total Score: 5 BHS Progress Note (SOAP) Subjective: Fatigue. Objective: PATIENT A & O X 3. IN NO ACUTE DISTRESS. 06/09/19 15:06 Vital Signs Temperature 98.3 F 06/09/19 13:22 Pulse Rate 102 H 06/09/19 13:22 Respiratory Rate 20 06/09/19 13:22 Blood Pressure 126/70 06/09/19 13:22 O2 Sat by Pulse Oximetry (%) Laboratory Tests 06/07/19 06/07/19 06/07/19 07:50 07:50 07:50 WBC 5.9 RBC 3.59 L Hgb 12.5 Hct 37.4 MCV 104.1 H MCH 34.8 H MCHC 33.4 RDW 17.2 H Plt Count 149 D MPV 9.3 D Sodium 138 Potassium 4.1 Chloride 100 Carbon Dioxide 30 Anion Gap 8 BUN 10.5 Creatinine 0.6 Est GFR (CKD-EPI)AfAm 110.86 Est GFR (CKD-EPI)NonAf 95.65 Random Glucose 88 Calcium 8.9 Total Bilirubin 1.0 AST 21 ALT 16 Alkaline Phosphatase 59 Total Protein 6.6 Albumin 3.6 RPR Titer Nonreactive LABS NOTED. Assessment: 06/09/19 15:07 WITHDRAWAL SYMPTOMS. Plan: CONTINUE DETOX. PATIENT SCHEDULED FOR D/C FROM DETOX UNIT TOMORROW.
[2019-06-09] MEDS ORDERED: guaiFENesin 200 MG/10 ML 10 ML UNIT-DOSE CUPS PO PRN (17:58)
[2019-06-09] MEDS: THIAMINE HCL 100 MG TABLET (FP) PO SCH (22:53)
[2019-06-10] MEDS: chlordiazePOXIDE 5 MG CAPSULE PO SCH ×2 (05:49→17:49)
[2019-06-10] MEDS: NICOTINE 14 MG/24 HOURS TOPICAL PATCH TD SCH ×2 (10:35→11:33)
[2019-06-10] MEDS: PRENATAL VITAMINS W/ FOLIC ACID TABLET (FP) PO SCH (10:35)
--- NOTE | 2019-06-10 11:14 | PN ---
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 dizziness no shortness of breath no chest pain S1S2 tachy regular rhythm able to pivot self from wheelchair to bed Objective: 06/10/19 11:22 Vital Signs Temperature 97.6 F 06/10/19 09:20 Pulse Rate 107 H 06/10/19 09:20 Respiratory Rate 20 06/10/19 09:20 Blood Pressure 116/74 06/10/19 09:20 O2 Sat by Pulse Oximetry (%) Laboratory Last Values WBC 5.9 K/mm3 (4.0-10.0) 06/07/19 07:50 RBC 3.59 M/mm3 (3.60-5.2) L 06/07/19 07:50 Hgb 12.5 GM/dL (10.7-15.3) 06/07/19 07:50 Hct 37.4 % (32.4-45.2) 06/07/19 07:50 MCV 104.1 fl (80-96) H 06/07/19 07:50 MCH 34.8 pg (25.7-33.7) H 06/07/19 07:50 MCHC 33.4 g/dl (32.0-36.0) 06/07/19 07:50 RDW 17.2 % (11.6-15.6) H 06/07/19 07:50 Plt Count 149 K/MM3 (134-434) D 06/07/19 07:50 MPV 9.3 fl (7.5-11.1) D 06/07/19 07:50 Sodium 138 mmol/L (136-145) 06/07/19 07:50 Potassium 4.1 mmol/L (3.5-5.1) 06/07/19 07:50 Chloride 100 mmol/L (98-107) 06/07/19 07:50 Carbon Dioxide 30 mmol/L (21-32) 06/07/19 07:50 Anion Gap 8 MMOL/L (8-16) 06/07/19 07:50 BUN 10.5 mg/dL (7-18) 06/07/19 07:50 Creatinine 0.6 mg/dL (0.55-1.3) 06/07/19 07:50 Est GFR (CKD-EPI)AfAm 110.86 06/07/19 07:50 Est GFR (CKD-EPI)NonAf 95.65 06/07/19 07:50 Random Glucose 88 mg/dL (74-106) 06/07/19 07:50 Calcium 8.9 mg/dL (8.5-10.1) 06/07/19 07:50 Total Bilirubin 1.0 mg/dL (0.2-1) 06/07/19 07:50 AST 21 U/L (15-37) 06/07/19 07:50 ALT 16 U/L (13-61) 06/07/19 07:50 Alkaline Phosphatase 59 U/L (45-117) 06/07/19 07:50 Total Protein 6.6 g/dl (6.4-8.2) 06/07/19 07:50 Albumin 3.6 g/dl (3.4-5.0) 06/07/19 07:50 RPR Titer Nonreactive (NONREACTIVE) 06/07/19 07:50 lab noted Assessment: 06/10/19 11:23 alcohol withdrawal sx Plan: begin medical management 1
[2019-06-10] MEDS: LISINOPRIL 5 MG TABLET (FP) PO SCH (11:33)
[2019-06-10] MEDS: THIAMINE HCL 100 MG TABLET (FP) PO SCH (22:57)
[2019-06-11 06:57] VITALS: BP 163/87; PULSE 72; TEMP 97.5
[2019-06-11] MEDS: NICOTINE 14 MG/24 HOURS TOPICAL PATCH TD SCH (10:38)
[2019-06-11] MEDS: PRENATAL VITAMINS W/ FOLIC ACID TABLET (FP) PO SCH (10:38)
[2019-06-11] MEDS: LISINOPRIL 5 MG TABLET (FP) PO SCH (10:38)
--- NOTE | 2019-06-11 14:51 | DS ---
[facility] Detox Discharge Summary Admission Date: 06/06/19 Discharge Date: 06/11/19 - History Present History: Alcohol Dependence Additional Comments: did well with librium detox regimen no complication through out the detox stay patient is alert oriented to time place and person patient has usual bp elevation in the morning denies headache no blurred vision cardiac S1S2 regular mild rapid rate rhythm right and left lower lobs wheezing breath ease and even skin warm and dry - Physical Exam Results Vital Signs: Vital Signs Temperature 97.5 F L 06/11/19 06:56 Pulse Rate 72 06/11/19 06:56 Respiratory Rate 18 06/11/19 06:56 Blood Pressure 163/87 06/11/19 06:56 O2 Sat by Pulse Oximetry (%) Pertinent Admission Physical Exam Findings: alcohol with drawal sx Laboratory Last Values WBC 5.9 K/mm3 (4.0-10.0) 06/07/19 07:50 RBC 3.59 M/mm3 (3.60-5.2) L 06/07/19 07:50 Hgb 12.5 GM/dL (10.7-15.3) 06/07/19 07:50 Hct 37.4 % (32.4-45.2) 06/07/19 07:50 MCV 104.1 fl (80-96) H 06/07/19 07:50 MCH 34.8 pg (25.7-33.7) H 06/07/19 07:50 MCHC 33.4 g/dl (32.0-36.0) 06/07/19 07:50 RDW 17.2 % (11.6-15.6) H 06/07/19 07:50 Plt Count 149 K/MM3 (134-434) D 06/07/19 07:50 MPV 9.3 fl (7.5-11.1) D 06/07/19 07:50 Sodium 138 mmol/L (136-145) 06/07/19 07:50 Potassium 4.1 mmol/L (3.5-5.1) 06/07/19 07:50 Chloride 100 mmol/L (98-107) 06/07/19 07:50 Carbon Dioxide 30 mmol/L (21-32) 06/07/19 07:50 Anion Gap 8 MMOL/L (8-16) 06/07/19 07:50 BUN 10.5 mg/dL (7-18) 06/07/19 07:50 Creatinine 0.6 mg/dL (0.55-1.3) 06/07/19 07:50 Est GFR (CKD-EPI)AfAm 110.86 06/07/19 07:50 Est GFR (CKD-EPI)NonAf 95.65 06/07/19 07:50 Random Glucose 88 mg/dL (74-106) 06/07/19 07:50 Calcium 8.9 mg/dL (8.5-10.1) 06/07/19 07:50 Total Bilirubin 1.0 mg/dL (0.2-1) 06/07/19 07:50 AST 21 U/L (15-37) 06/07/19 07:50 ALT 16 U/L (13-61) 06/07/19 07:50 Alkaline Phosphatase 59 U/L (45-117) 06/07/19 07:50 Total Protein 6.6 g/dl (6.4-8.2) 06/07/19 07:50 Albumin 3.6 g/dl (3.4-5.0) 06/07/19 07:50 RPR Titer Nonreactive (NONREACTIVE) 06/07/19 07:50 lab noted - Treatment Hospital Course: Detox Protocol Followed, Detoxed Safely, Responded well, Discharged Condition Good, Rehab Referral Accepted Patient has Accepted [facility] Ref[facility] - Medication Discharge Medications: Ambulatory Orders NK [No Known Home Medication] 05/10/18 - Diagnosis (1) Wheel chair as ambulatory aid Status: Chronic (2) Alcohol dependence with uncomplicated withdrawal Status: Acute (3) Nicotine dependence Status: Acute Qualifiers: Nicotine product type: cigarettes Substance use status: in withdrawal Qualified Code(s): F17.213 - Nicotine dependence, cigarettes, with withdrawal - AMA Did Patient Leave Against Medical Advice: No CIWA Score - CIWA Score Nausea/Vomitin-No Nausea/No Vomiting Muscle Tremors: None Anxiety: 0-No Anxiety, at Ease Agitation: 0-Normal Activity Paroxysmal Sweats: No Perspiration Orientation: 0-Oriented Tacttile Disturbances: 0-None Auditory Disturbances: 0-None Visual Disturbances: 0-None Headache: 0-None Present CIWA-Ar Total Score: 0
== END 2019-06-11 11:10 | disposition home or self-care (01) | DRG 897 ==
LOC: YASAS 13:58 → Y3N 18:48
PROVIDERS: ADMIT Surgery; ATTEND Surgery
PROC: HZ2ZZZZ Detoxification Services for Substance Abuse Treatment (ICD-10-PCS; principal; 2019-06-06)
DX: F10.230 Alcohol dependence with withdrawal, uncomplicated (principal); F17.210 Nicotine dependence, cigarettes, uncomplicated; F32.9 Major depressive disorder, single episode, unspecified; G40.909 Epilepsy, unspecified, not intractable, without status epilepticus; M17.0 Bilateral primary osteoarthritis of knee; Z99.3 Dependence on wheelchair; Z91.5 Personal history of self-harm; Z59.0 Homelessness
CPT/HCPCS: 36415; 80053; 85027; 86593